=== PATIENT | male | born 1980 | race Asian ===

== ENCOUNTER 2017-06-30 19:16 | Emergency (ER) | payer SELFPAY | END 2017-06-30 20:23 | disposition home or self-care (01) | LOC: ER 19:16 | DX: S29.012A Strain of muscle and tendon of back wall of thorax, initial encounter (principal); Z87.442 Personal history of urinary calculi; V49.49XA Driver injured in collision with other motor vehicles in traffic accident, initial encounter; Y93.89 Activity, other specified; Y99.8 Other external cause status; Y92.488 Other paved roadways as the place of occurrence of the external cause | CPT/HCPCS: 99283 ==

== ENCOUNTER 2019-05-04 05:28 | Emergency (ER) | payer SELFPAY ==
[~2019-05-04] VITALS: Ht 167.6 cm; Wt 68.0 kg
[~2019-05-04 05:28] MED LIST: TRAM50TA PO
[2019-05-04 05:38] VITALS: BP 137/84
[2019-05-04 05:45] LABS: CLARITY,URINE CLEAR; COLOR,URINE ORANGE
[2019-05-04 05:56] LABS: RBC,URINE >40 /HPF (0-2); SQUAMOUS EPITHELIAL CELL,UR OCC /LPF
[2019-05-04 05:57] LABS: BACTERIA,URINE MODERATE /HPF (0-FEW); HYALINE CASTS, URINE OCCASIONAL /HPF; WBC,URINE 20-40 /HPF (0-4)
--- NOTE | 2019-05-04 06:21 | PHYS DOC ---
Past Medical History Past Medical History: Kidney Stone Past Surgical History: Other Additional Past Surgical Histo: Multiple Lithotripsy Smokin Pack Per Day Alcohol Use: Occasionally Drug Use: None Adult General Chief Complaint Chief Complaint: FLANK PAIN HPI HPI Patient is a 34-year-old male with a past medical history of kidney stones is presenting to the emergency department with right flank pain. Patient states that he feels like he passed a left-sided stone yesterday and then developed right-sided flank pain last night. Patient states this feels exactly like his kidney stones in the past. Patient has a history of multiple lithotripsies in the past. Patient denies fever, chills, nausea, vomiting, constipation, diarrhea, chest pain, and shortness of breath. Patient states that he does have a little bit of abdominal pain with this episode. Patient reports seeing blood in the urine this morning. Patient denies any trauma. Review of Systems Review of Systems Constitutional: Denies fever or chills Eyes: Denies redness or eye pain HENT: Denies nasal congestion or sore throat Respiratory: Denies cough or shortness of breath Cardiovascular: Denies chest pain or palpitations GI: Denies nausea, or vomiting, reports abdominal pain : Denies dysuria or hematuria Musculoskeletal: Denies joint pain, reports back pain Integument: Denies rash or skin lesions Neurologic: Denies headache, focal weakness or sensory changes Complete systems were reviewed and found to be within normal limits, except as documented in this note. Current Medications Current Medications Current Medications Medications (Trade) Dose Ordered Sig/Catarino Start Time Stop Time Status Last Admin Dose Admin Ceftriaxone Sodium (Rocephin) 1 gm 1X ONCE 05/04/19 07:00 05/04/19 07:01 DC 05/04/19 07:05 1 GM Ketorolac Tromethamine (Toradol 15mg Vial) 15 mg 1X ONCE 05/04/19 06:30 05/04/19 06:31 DC 05/04/19 06:21 15 MG Metoclopramide HCl (Reglan Vial) 10 mg 1X ONCE 05/04/19 06:30 05/04/19 06:31 DC 05/04/19 06:21 10 MG Sodium Chloride 1,000 ml @ 1,000 mls/hr 1X ONCE 05/04/19 06:30 05/04/19 07:29 DC 05/04/19 06:21 1,000 MLS/HR Allergies Allergies Allergies Coded Allergies Type Severity Reaction Last Updated Verified No Known Drug Allergies 06/30/17 No Physical Exam Physical Exam Constitutional: Well developed, well nourished, no acute distress, non-toxic appearance HENT: Normocephalic, atraumatic, oropharynx moist Eyes: Conjunctiva normal, no discharge Neck: Normal range of motion, no tenderness, supple Cardiovascular: Heart rate normal, regular rhythm Lungs & Thorax: Bilateral breath sounds clear to auscultation, no wheezing Abdomen: Soft, mild tenderness in the epigastric region, nondistended, non- peritoneal Skin: Warm, dry, no erythema, no rash Back: No tenderness, right-sided CVA tenderness Extremities: No tenderness, ROM intact, no edema Neurologic: Alert and oriented X 3, no focal deficits noted Psychologic: Affect normal, judgement normal, mood normal Current Patient Data Vital Signs Vital Signs Date Time Temp Pulse Resp B/P (MAP) Pulse Ox O2 Delivery O2 Flow Rate FiO2 05/04/19 05:38 98.3 92 17 137/84 (101) 98 Room Air 98.3 Lab Values Laboratory Tests Test 05/04/19 05:35 05/04/19 06:00 Urine Collection Type Void Urine Color [place] Urine Clarity Clear Urine pH Urine Specific [place] Urine Protein mg/dL (NEG-TRACE) Urine Glucose (UA) mg/dL (NEG) Urine Ketones (Stick) mg/dL (NEG) Urine Blood (NEG) Urine Nitrite (NEG) Urine Bilirubin (NEG) Urine Urobilinogen Dipstick mg/dL (0.2 mg/dL) Urine Leukocyte Esterase (NEG) Urine RBC >40 /HPF (0-2) Urine WBC 20-40 /HPF (0-4) Urine Squamous Epithelial Cells Occ /LPF Urine Bacteria Moderate /HPF (0-FEW) Urine Hyaline Casts Occasional /HPF White Blood Count 13.6 x10^3/uL (4.0-11.0) H Red Blood Count 5.17 x10^6/uL (4.30-5.70) Hemoglobin 15.9 g/dL (13.0-17.5) Hematocrit 47.0 % (39.0-53.0) Mean Corpuscular Volume 91 fL (79-100) Mean Corpuscular Hemoglobin 31 pg (25-35) Mean Corpuscular Hemoglobin Concent 34 g/dL (31-37) Red Cell Distribution Width 14.1 % (11.5-14.5) Platelet Count 250 x10^3/uL (140-400) Neutrophils (%) (Auto) 81 % (31-73) H Lymphocytes (%) (Auto) 11 % (24-48) L Monocytes (%) (Auto) 6 % (0-9) Eosinophils (%) (Auto) 2 % (0-3) Basophils (%) (Auto) 0 % (0-3) Neutrophils # (Auto) 11.0 x10^3/uL (1.8-7.7) H Lymphocytes # (Auto) 1.5 x10^3/uL (1.0-4.8) Monocytes # (Auto) 0.8 x10^3/uL (0.0-1.1) Eosinophils # (Auto) 0.2 x10^3/uL (0.0-0.7) Basophils # (Auto) 0.1 x10^3/uL (0.0-0.2) Sodium Level 137 mmol/L (136-145) Potassium Level 3.1 mmol/L (3.5-5.1) L Chloride Level 102 mmol/L (98-107) Carbon Dioxide Level 26 mmol/L (21-32) Anion Gap 9 (6-14) Blood Urea Nitrogen 8 mg/dL (8-26) Creatinine 1.1 mg/dL (0.7-1.3) Estimated GFR (Cockcroft-Gault) 74.5 BUN/Creatinine Ratio 7 (6-20) Glucose Level 137 mg/dL (70-99) H Calcium Level 9.2 mg/dL (8.5-10.1) Magnesium Level 1.9 mg/dL (1.8-2.4) Total Bilirubin 0.5 mg/dL (0.2-1.0) Aspartate Amino Transferase (AST) 11 U/L (15-37) L Alanine Aminotransferase (ALT) 32 U/L (16-63) Alkaline Phosphatase 112 U/L (46-116) Total Protein 7.7 g/dL (6.4-8.2) Albumin 3.6 g/dL (3.4-5.0) Albumin/Globulin Ratio 0.9 (1.0-1.7) L Lipase 70 U/L (73-393) L Laboratory Tests 05/04/19 06:00 Laboratory Tests 05/04/19 06:00 EKG EKG [] Radiology/Procedures Radiology/Procedures PROCEDURE: CT ABDOMEN PELVIS WO CONTRAST Study: CT abdomen and pelvis without contrast Indication: Right flank pain. Comparison: None. Technique: Helical CT imaging performed of the abdomen and pelvis without the use of intravenous contrast. Sagittal and coronal reformats were obtained. One or more of the following individualized dose reduction techniques were utilized for this examination: 1. Automated exposure control 2. Adjustment of the mA and/or kV according to patient size 3. Use of iterative reconstruction technique. Findings: Pelviectasis and mild hydroureter on the right as well as periureteral fat stranding however no discrete stone is seen within the ureter. Mild prominence of the left ureter as well as mild periureteral fat stranding along its distal third also without a stone visualized within the ureter. Multiple intrarenal stones are present on the left is measuring up to 1 cm at the upper pole. No stones seen within the urinary bladder. The prostate is somewhat prominent in size. Mild circumferential thickening of the urinary bladder wall. Unremarkable colon and appendix. Nonobstructed small bowel. Collapsed stomach limiting evaluation. Unremarkable major vasculature. No free fluid or air. Unremarkable body wall soft tissues. Unremarkable lower lungs and visualized heart. No abnormality seen to involve the liver, spleen, adrenal glands or pancreas. Synovial herniation pits seen on the left. Smaller pits present on the right. Impression: Several intrarenal stones on the left the largest of which measures up to 1 cm. On the right, pelviectasis and mild hydroureter however no stone is seen within the collecting system. Mild ureteral prominence on the left as well as mild periureteral fat stranding bilaterally. These findings could represent the sequela of a recently passed stone though an ascending urinary tract infection is not excluded. Consider correlation with urinalysis. Electronically signed by: PIERCE VERA MD (05/04/2019 7:04 AM) [facility] Course & Med Decision Making Course & Med Decision Making Pertinent Labs and Imaging studies reviewed. (See chart for details) Patient is a 38-year-old male was past medical history of kidney stones is presenting to the emergency department with right-sided flank pain. Patient was seen and examined at bedside. Physical exam was significant for mild epigastric tenderness and right-sided CVA tenderness. Labs, fluids, CT scan ordered. CT scan showed several intrarenal stones on the left the largest of which measures up to 1 cm, on the right, pelviectasis and mild hydroureter however no stone is seen within the collecting system, mild ureteral prominence on the left as well as mild periureteral fat stranding bilaterally. UA indicative of urinary tract infection, 1 g Rocephin given. Labs significant for a white count, others at baseline. Dragon Disclaimer Dragon Disclaimer This electronic medical record was generated, in whole or in part, using a voice recognition dictation system. Departure Departure Impression: Primary Impression: UTI (urinary tract infection) Additional Impressions: Kidney stone Hypokalemia Disposition: 01 HOME, SELF-CARE Condition: STABLE Referrals: NO PCP (PCP) Patient Instructions: Diet for Kidney Stones, Hypokalemia-Brief, Kidney Stones, [id number], Potassium Content of Foods, Urinary Tract Infection, [id number] Scripts Cephalexin (KEFLEX) 500 Mg Capsule 500 MG PO TID for 7 Days, #21 CAP Prov: MELINDA CASTRO DO 05/04/19 Hydrocodone/Apap 5-325 (NORCO 5-325 TABLET) 1 Each Tablet 0.5-1 TAB PO PRN Q6HRS PRN for PAIN, #10 TAB 0 Refills Prov: MELINDA CASTRO DO 05/04/19 Problem Qualifiers Primary Impression: UTI (urinary tract infection) Urinary tract infection type: site unspecified Hematuria presence: with hematuria Qualified Codes: N39.0 - Urinary tract infection, site not specified; R31.9 - Hematuria, unspecified MELINDA CASTRO DO May 04, 2019 06:21
[2019-05-04] MEDS ORDERED: IV NORMAL SALINE 1000ML BAG 1,000 ML IV ONE (06:30)
[2019-05-04] MEDS ORDERED: METOCLOPRAMIDE HCL 10 MG/2 ML VIAL. IVP ONE (06:30)
[2019-05-04] MEDS ORDERED: KETOROLAC 15 MG/ML VIAL. IVP ONE (06:30)
[2019-05-04 06:32] LABS: BASO # 0.1 x10^3/uL (0.0-0.2); BASO % 0 % (0-3); EOS # 0.2 x10^3/uL (0.0-0.7); EOS % 2 % (0-3); HEMOGLOBIN 15.9 g/dL (13.0-17.5); LYMPH # 1.5 x10^3/uL (1.0-4.8); LYMPH % 11 % (24-48); MEAN CORPUSCULAR HEMOGLOBIN 31 pg (25-35); MEAN CORPUSCULAR HGB CONC 34 g/dL (31-37); MEAN CORPUSCULAR VOLUME 91 fL (79-100); MONO # 0.8 x10^3/uL (0.0-1.1); MONO % 6 % (0-9); NEUT % 81 % (31-73); PLATELET COUNT 250 x10^3/uL (140-400); RED BLOOD COUNT 5.17 x10^6/uL (4.30-5.70); RED CELL DISTRIBUTION WIDTH 14.1 % (11.5-14.5); WHITE BLOOD COUNT 13.6 x10^3/uL (4.0-11.0)
[2019-05-04 06:40] LABS: CALCIUM 9.2 mg/dL (8.5-10.1); CREATININE 1.1 mg/dL (0.7-1.3); GFR 74.5; POTASSIUM 3.1 mmol/L (3.5-5.1)
[2019-05-04 06:46] LABS: ALBUMIN 3.6 g/dL (3.4-5.0); ALBUMIN/GLOBULIN RATIO 0.9 (1.0-1.7); MAGNESIUM 1.9 mg/dL (1.8-2.4); TOTAL BILIRUBIN 0.5 mg/dL (0.2-1.0); TOTAL PROTEIN 7.7 g/dL (6.4-8.2)
[2019-05-04] MEDS ORDERED: cefTRIAXone IV Push 1 GM VIAL. IVP ONE (07:00)
--- NOTE | 2019-05-04 07:07 | RAD ---
Study: CT abdomen and pelvis without contrast Indication: Right flank pain. Comparison: None. Technique: Helical CT imaging performed of the abdomen and pelvis without the use of intravenous contrast. Sagittal and coronal reformats were obtained. One or more of the following individualized dose reduction techniques were utilized for this examination: 1. Automated exposure control 2. Adjustment of the mA and/or kV according to patient size 3. Use of iterative reconstruction technique. Findings: Pelviectasis and mild hydroureter on the right as well as periureteral fat stranding however no discrete stone is seen within the ureter. Mild prominence of the left ureter as well as mild periureteral fat stranding along its distal third also without a stone visualized within the ureter. Multiple intrarenal stones are present on the left is measuring up to 1 cm at the upper pole. No stones seen within the urinary bladder. The prostate is somewhat prominent in size. Mild circumferential thickening of the urinary bladder wall. Unremarkable colon and appendix. Nonobstructed small bowel. Collapsed stomach limiting evaluation. Unremarkable major vasculature. No free fluid or air. Unremarkable body wall soft tissues. Unremarkable lower lungs and visualized heart. No abnormality seen to involve the liver, spleen, adrenal glands or pancreas. Synovial herniation pits seen on the left. Smaller pits present on the right. Impression: Several intrarenal stones on the left the largest of which measures up to 1 cm. On the right, pelviectasis and mild hydroureter however no stone is seen within the collecting system. Mild ureteral prominence on the left as well as mild periureteral fat stranding bilaterally. These findings could represent the sequela of a recently passed stone though an ascending urinary tract infection is not excluded. Consider correlation with urinalysis. Electronically signed by: PIERCE VERA MD (05/04/2019 7:04 AM) [facility]
[2019-05-04] MEDS ORDERED: HYDR-3164 PO (07:37)
[2019-05-04] MEDS ORDERED: CEPH-264 PO (07:37)
[2019-05-04] MEDS ORDERED: POTASSIUM CHLORIDE 20 MEQ TABLET.ER. PO ONE (07:45)
== END 2019-05-04 07:56 | disposition home or self-care (01) ==
LOC: ER 05:28
DX: N39.0 Urinary tract infection, site not specified (principal); N20.0 Calculus of kidney; E87.6 Hypokalemia; F17.200 Nicotine dependence, unspecified, uncomplicated; Z98.890 Other specified postprocedural states; Z87.442 Personal history of urinary calculi; Z79.899 Other long term (current) drug therapy
CPT/HCPCS: 36415; 74176; 80053; 81001; 83690; 83735; 85025; 87086; 96374; 96375; 99285; J0696; J1885; J2765; J7030

== ENCOUNTER 2019-09-20 20:22 | Emergency (ER) | payer SELFPAY ==
[~2019-09-20] VITALS: Ht 167.6 cm; Wt 74.1 kg
[~2019-09-20 20:22] MED LIST changes: +CEPH-264 PO; +HYDR-3164 PO
[2019-09-20 20:53] LABS: BILIRUBIN,URINE NEGATIVE (NEG); CLARITY,URINE CLEAR; COLOR,URINE YELLOW; NITRITE,URINE NEGATIVE (NEG); PROTEIN,URINE 30 mg/dL (NEG-TRACE); UROBILINOGEN,URINE 0.2 mg/dL (0.2 mg/dL)
[2019-09-20 21:04] LABS: BACTERIA,URINE MANY /HPF (0-FEW); RBC,URINE TNTC /HPF (0-2); SQUAMOUS EPITHELIAL CELL,UR FEW /LPF; WBC,URINE TNTC /HPF (0-4)
[2019-09-20 21:07] LABS: BASO # 0.1 x10^3/uL (0.0-0.2); BASO % 1 % (0-3); EOS # 0.3 x10^3/uL (0.0-0.7); EOS % 3 % (0-3); HEMATOCRIT 46.8 % (39.0-53.0); HEMOGLOBIN 15.9 g/dL (13.0-17.5); LYMPH # 1.4 x10^3/uL (1.0-4.8); LYMPH % 14 % (24-48); MEAN CORPUSCULAR HEMOGLOBIN 31 pg (25-35); MEAN CORPUSCULAR HGB CONC 34 g/dL (31-37); MEAN CORPUSCULAR VOLUME 92 fL (79-100); MONO # 0.7 x10^3/uL (0.0-1.1); MONO % 7 % (0-9); NEUT # 7.5 x10^3/uL (1.8-7.7); NEUT % 76 % (31-73); PLATELET COUNT 257 x10^3/uL (140-400); RED BLOOD COUNT 5.12 x10^6/uL (4.30-5.70); RED CELL DISTRIBUTION WIDTH 14.4 % (11.5-14.5); WHITE BLOOD COUNT 9.9 x10^3/uL (4.0-11.0)
[2019-09-20 21:14] LABS: CALCIUM 9.3 mg/dL (8.5-10.1); CREATININE 0.9 mg/dL (0.7-1.3); GFR 93.5; POTASSIUM 3.6 mmol/L (3.5-5.1)
[2019-09-20] MEDS ORDERED: METOCLOPRAMIDE HCL 10 MG/2 ML VIAL. IVP ONE (21:15)
[2019-09-20] MEDS ORDERED: IV NORMAL SALINE 1000ML BAG 1,000 ML IV ONE (21:15)
[2019-09-20] MEDS ORDERED: KETOROLAC 15 MG/ML VIAL. IVP ONE (21:15)
[2019-09-20 21:20] LABS: ALBUMIN 3.8 g/dL (3.4-5.0); MAGNESIUM 1.9 mg/dL (1.8-2.4); TOTAL BILIRUBIN 0.4 mg/dL (0.2-1.0); TOTAL PROTEIN 7.6 g/dL (6.4-8.2)
[2019-09-20] MEDS ORDERED: cefTRIAXone IV Push 1 GM VIAL. IVP ONE (21:30)
--- NOTE | 2019-09-20 21:36 | RAD ---
Exam: CT of abdomen and pelvis without contrast INDICATION: Flank pain, evaluate for kidney stone TECHNIQUE: Sequential axial images through the abdomen and pelvis obtained without IV contrast. Sagittal and coronal reformatted images were reconstructed from the axial data and reviewed. Comparisons: 05/04/2019 FINDINGS: Heart size is normal. No pericardial effusion. Visualized lung bases are clear. No pleural effusion. Evaluation of the solid organs is limited secondary to noncontrast technique. Liver, spleen, pancreas, gallbladder and adrenals are unremarkable. There is a 1 cm calculus at the left ureteropelvic junction. Several nonobstructing left renal calculi are noted. No other ureteral calculi are identified. Bladder is decompressed not well evaluated. Prostate is not enlarged. Large and small bowel are unremarkable. Appendix is normal. No free intra-abdominal air or fluid. Abdominal aorta has a normal course and caliber. No enlarged intra-abdominal lymph nodes are identified. No suspicious osseous lesions or acute fractures. IMPRESSION: 1. A 1 cm calculus at the left ureteral pelvic junction with mild left-sided hydronephrosis. 2. Several nonobstructing left renal calculi. Exposure: One or more of the following in the visualized dose reduction techniques were utilized for this examination: 1. Automated exposure control 2. Adjustment of the MA and/or KV according to patient size 3. Use of iterative of reconstructive technique Electronically signed by: Donovan Savage MD (09/20/2019 9:33 PM) [id number]
[2019-09-20 22:00] VITALS: BP 122/66
[2019-09-20] MEDS ORDERED: HYDR-3164 PO (22:13)
--- NOTE | 2019-09-20 22:13 | PHYS DOC ---
Past Medical History Past Medical History: Kidney Stone Past Surgical History: Other Additional Past Surgical Histo: Multiple Lithotripsy Smoking Status: Current Every Day Smoker Alcohol Use: None Drug Use: None General Adult EDM: Chief Complaint: FLANK PAIN HPI: HPI: Patient is a 39 year old male presents with history of left flank pain x 2 days. Reports history of kidney stones. Reports current symptoms similar to prior episode. Patient reports some associated subjective fever/chills. Denies trauma. Review of Systems: Review of Systems: Constitutional: Reports subjective fever and chills Eyes: Denies change in visual acuity, redness, or eye pain HENT: Denies nasal congestion or sore throat Respiratory: Denies cough or shortness of breath Cardiovascular: Denies chest pain or palpitations GI: Reports abdominal pain; denies nausea, vomiting, or diarrhea : Denies dysuria or hematuria Musculoskeletal: Reports left flank pain; denies joint pain Integument: Denies rash or skin lesions Neurologic: Denies headache, focal weakness or sensory changes Complete systems were reviewed and found to be within normal limits, except as documented in this note. Current Medications: Current Medications Medications (Trade) Dose Ordered Sig/Catarino Start Time Stop Time Status Last Admin Dose Admin Ceftriaxone Sodium (Rocephin) 1 gm 1X ONCE 09/20/19 21:30 09/20/19 21:31 DC Ketorolac Tromethamine (Toradol 15mg Vial) 15 mg 1X ONCE 09/20/19 21:15 09/20/19 21:16 DC 09/20/19 21:18 15 MG Metoclopramide HCl (Reglan Vial) 10 mg 1X ONCE 09/20/19 21:15 09/20/19 21:16 DC 09/20/19 21:18 10 MG Sodium Chloride 1,000 ml @ 1,000 mls/hr 1X ONCE 09/20/19 21:15 09/20/19 22:14 09/20/19 21:26 1,000 MLS/HR Tamsulosin HCl (Flomax) 0.4 mg 1X ONCE 09/20/19 22:15 09/20/19 22:16 UNV Allergies: Allergies: Allergies Coded Allergies Type Severity Reaction Last Updated Verified No Known Drug Allergies 06/30/17 No Physical Exam: PE: Constitutional: Well developed, well nourished, no acute distress, non-toxic appearance HENT: Normocephalic, atraumatic, oropharynx moist Eyes: Conjunctiva normal, no discharge Neck: Normal range of motion, no tenderness, supple Cardiovascular: Heart rate normal and regular rhythm Lungs & Thorax: Bilateral breath sounds clear to auscultation, no respiratory distress Abdomen: Soft, left sided tenderness, no guarding/rebound tenderness Skin: Warm, dry, no erythema, no rash Back: No tenderness, left CVA tenderness Extremities: No tenderness, ROM intact, no edema Neurologic: Alert and oriented X 3, no focal deficits noted Psychologic: Affect normal, judgement normal Current Patient Data: Labs: Laboratory Tests Test 09/20/19 20:27 09/20/19 20:48 Urine Collection Type Unknown Urine Color Yellow Urine Clarity Clear Urine pH 6.0 (<5.0-8.0) Urine Specific [place] 1.010 (1.000-1.030) Urine Protein 30 mg/dL (NEG-TRACE) Urine Glucose (UA) Negative mg/dL (NEG) Urine Ketones (Stick) Negative mg/dL (NEG) Urine Blood Large (NEG) Urine Nitrite Negative (NEG) Urine Bilirubin Negative (NEG) Urine Urobilinogen Dipstick 0.2 mg/dL (0.2 mg/dL) Urine Leukocyte Esterase Large (NEG) Urine RBC Tntc /HPF (0-2) Urine WBC Tntc /HPF (0-4) Urine Squamous Epithelial Cells Few /LPF Urine Bacteria Many /HPF (0-FEW) White Blood Count 9.9 x10^3/uL (4.0-11.0) Red Blood Count 5.12 x10^6/uL (4.30-5.70) Hemoglobin 15.9 g/dL (13.0-17.5) Hematocrit 46.8 % (39.0-53.0) Mean Corpuscular Volume 92 fL (79-100) Mean Corpuscular Hemoglobin 31 pg (25-35) Mean Corpuscular Hemoglobin Concent 34 g/dL (31-37) Red Cell Distribution Width 14.4 % (11.5-14.5) Platelet Count 257 x10^3/uL (140-400) Neutrophils (%) (Auto) 76 % (31-73) H Lymphocytes (%) (Auto) 14 % (24-48) L Monocytes (%) (Auto) 7 % (0-9) Eosinophils (%) (Auto) 3 % (0-3) Basophils (%) (Auto) 1 % (0-3) Neutrophils # (Auto) 7.5 x10^3/uL (1.8-7.7) Lymphocytes # (Auto) 1.4 x10^3/uL (1.0-4.8) Monocytes # (Auto) 0.7 x10^3/uL (0.0-1.1) Eosinophils # (Auto) 0.3 x10^3/uL (0.0-0.7) Basophils # (Auto) 0.1 x10^3/uL (0.0-0.2) Sodium Level 139 mmol/L (136-145) Potassium Level 3.6 mmol/L (3.5-5.1) Chloride Level 104 mmol/L (98-107) Carbon Dioxide Level 26 mmol/L (21-32) Anion Gap 9 (6-14) Blood Urea Nitrogen 10 mg/dL (8-26) Creatinine 0.9 mg/dL (0.7-1.3) Estimated GFR (Cockcroft-Gault) 93.5 BUN/Creatinine Ratio 11 (6-20) Glucose Level 64 mg/dL (70-99) L Calcium Level 9.3 mg/dL (8.5-10.1) Magnesium Level 1.9 mg/dL (1.8-2.4) Total Bilirubin 0.4 mg/dL (0.2-1.0) Aspartate Amino Transferase (AST) 17 U/L (15-37) Alanine Aminotransferase (ALT) 37 U/L (16-63) Alkaline Phosphatase 96 U/L (46-116) Total Protein 7.6 g/dL (6.4-8.2) Albumin 3.8 g/dL (3.4-5.0) Albumin/Globulin Ratio 1.0 (1.0-1.7) Lipase 95 U/L (73-393) Laboratory Tests 09/20/19 20:48 Laboratory Tests 09/20/19 20:48 Vital Signs: Vital Signs Date Time Temp Pulse Resp B/P (MAP) Pulse Ox O2 Delivery O2 Flow Rate FiO2 09/20/19 20:57 98.3 87 15 132/88 (103) 99 Room Air 98.3 EKG: EKG: [] Radiology/Procedures: Radiology/Procedures: PROCEDURE: CT ABDOMEN PELVIS WO CONTRAST Exam: CT of abdomen and pelvis without contrast INDICATION: Flank pain, evaluate for kidney stone TECHNIQUE: Sequential axial images through the abdomen and pelvis obtained without IV contrast. Sagittal and coronal reformatted images were reconstructed from the axial data and reviewed. Comparisons: 05/04/2019 FINDINGS: Heart size is normal. No pericardial effusion. Visualized lung bases are clear. No pleural effusion. Evaluation of the solid organs is limited secondary to noncontrast technique. Liver, spleen, pancreas, gallbladder and adrenals are unremarkable. There is a 1 cm calculus at the left ureteropelvic junction. Several nonobstructing left renal calculi are noted. No other ureteral calculi are identified. Bladder is decompressed not well evaluated. Prostate is not enlarged. Large and small bowel are unremarkable. Appendix is normal. No free intra-abdominal air or fluid. Abdominal aorta has a normal course and caliber. No enlarged intra-abdominal lymph nodes are identified. No suspicious osseous lesions or acute fractures. IMPRESSION: 1. A 1 cm calculus at the left ureteral pelvic junction with mild left-sided hydronephrosis. 2. Several nonobstructing left renal calculi. Exposure: One or more of the following in the visualized dose reduction techniques were utilized for this examination: 1. Automated exposure control 2. Adjustment of the MA and/or KV according to patient size 3. Use of iterative of reconstructive technique Electronically signed by: Donovan Savage MD (09/20/2019 9:33 PM) [id number] Course & Med Decision Making: Course & Med Decision Making Pertinent Labs and Imaging studies reviewed. (See chart for details) Patient presents with HPI and PE concerning for obstructing kidney stone. Labs obtained and posted to chart. UA with microscopic hematuria and concern for possible infection. Rocephin given. WBC WNL. CT Abd/pelvis with findings consistent for UPJ 1mm obstructing stone. Pain/nausea addressed. IVF hydration given. Flomax also provided. Patient stable for discharge home with outpatient follow-up with PCP/Urologist. Discussed findings and plan with patient, who acknowledges understanding and agreement. Romel Disclaimer: Romel Disclaimer: This electronic medical record was generated, in whole or in part, using a voice recognition dictation system. Departure Departure Impression: Primary Impression: Kidney stone Additional Impression: UTI (urinary tract infection) Qualified Codes: N30.01 - Acute cystitis with hematuria Disposition: HOME, SELF-CARE Condition: STABLE Referrals: NO PCP (PCP) Patient Instructions: Diet for Kidney Stones, Kidney Stones, [id number], Ur inary Tract Infection, [id number] Scripts Cephalexin (KEFLEX) 500 Mg Capsule 500 MG PO TID for 7 Days, #21 CAP Prov: MELINDA CASTRO DO 09/20/19 Tamsulosin Hcl (FLOMAX) 0.4 Mg Cap.er.24h 1 CAP PO DAILY, #10 CAP Prov: MELINDA CASTRO DO 09/20/19 Ondansetron (ONDANSETRON ODT) 4 Mg Tab.rapdis 1 TAB PO PRN Q6-8HRS PRN for NAUSEA, #16 TAB Prov: MELINDA CASTRO DO 09/20/19 Hydrocodone/Apap 5-325 (NORCO 5-325 TABLET) 1 Each Tablet 0.5-1 TAB PO PRN Q6HRS PRN for PAIN, #10 TAB 0 Refills Prov: MELINDA CASTRO DO 09/20/19 MELINDA CASTRO DO September 20, 2019 22:13
[2019-09-20] MEDS ORDERED: HYDROcodone/APAP 5/325MG 1 TAB TABLET PO ONE (22:15)
[2019-09-20] MEDS ORDERED: TAMSULOSIN 0.4 MG CAP.ER.24H. PO ONE (22:15)
[2019-09-20] MEDS ORDERED: CEPH-264 PO (22:17)
[2019-09-20] MEDS ORDERED: ONDA4TAB12 PO (22:17)
[2019-09-20] MEDS ORDERED: TAMS0.4C97 PO (22:17)
== END 2019-09-20 22:36 | disposition home or self-care (01) ==
LOC: ER 20:22
DX: N30.01 Acute cystitis with hematuria (principal); N20.0 Calculus of kidney; F17.200 Nicotine dependence, unspecified, uncomplicated; Z98.890 Other specified postprocedural states
CPT/HCPCS: 36415; 74176; 80053; 81001; 83690; 83735; 85025; 87086; 96374; 96375; 99284; J0696; J1885; J2765; J7030

== ENCOUNTER 2019-12-18 01:58 | Emergency (ER) | payer SELFPAY ==
[~2019-12-18] VITALS: Ht 167.6 cm; Wt 70.5 kg
[~2019-12-18 01:58] MED LIST changes: +ONDA4TAB12 PO; +TAMS0.4C97 PO
--- NOTE | 2019-12-18 03:15 | PHYS DOC ---
Past Medical History Past Medical History: Kidney Stone Past Surgical History: Other Additional Past Surgical Histo: Multiple Lithotripsy Smoking Status: Current Every Day Smoker Alcohol Use: None Drug Use: None General Adult EDM: Chief Complaint: LOWER EXT PAIN HPI: HPI: Patient is a 39 year old male who presents with pain in the left foot. Patient reports that he struck his heel by stomping his foot and anger. This happened on Friday and he is here this morning stating that he is unable to walk on it because of the pain. Patient denies any injury above the ankle. Patient otherwise denies any other complaints including chest pain, fever chills, shortness of breath, change in smell or taste. He describes the pain is constant, worse with weightbearing, nonradiating and described as sharp Review of Systems: Review of Systems: Constitutional: Denies fever or chills. [] Eyes: Denies change in visual acuity. [] HENT: Denies nasal congestion or sore throat. [] Respiratory: Denies cough or shortness of breath. [] Cardiovascular: Denies chest pain or edema. [] GI: Denies abdominal pain, nausea, vomiting, bloody stools or diarrhea. [] : Denies dysuria. [] Musculoskeletal: See HPI [] Integument: Denies rash. [] Neurologic: Denies headache, focal weakness or sensory changes. [] Endocrine: Denies polyuria or polydipsia. [] Lymphatic: Denies swollen glands. [] Psychiatric: Denies depression or anxiety. [] Heart Score: Risk Factors: Risk Factors: DM, Current or recent (<one month) smoker, HTN, HLP, family history of CAD, obesity. Risk Scores: Score 0 - 3: 2.5% MACE over next 6 weeks - Discharge Home Score 4 - 6: 20.3% MACE over next 6 weeks - Admit for Clinical Observation Score 7 - 10: 72.7% MACE over next 6 weeks - Early Invasive Strategies Allergies: Allergies: Allergies Coded Allergies Type Severity Reaction Last Updated Verified No Known Drug Allergies 06/30/17 No Physical Exam: PE: Constitutional: Well developed, well nourished, no acute distress, non-toxic appearance. [] HENT: Normocephalic, atraumatic, bilateral external ears normal, oropharynx moist, no oral exudates, nose normal. [] Eyes: PERRLA, EOMI, conjunctiva normal, no discharge. [] Neck: Normal range of motion, no tenderness, supple, no stridor. [] Cardiovascular:Heart rate regular rhythm, no murmur [] Lungs & Thorax: Bilateral breath sounds clear to auscultation [] Abdomen: Bowel sounds normal, soft, no tenderness, no masses, no pulsatile masses. [] Skin: Warm, dry, no erythema, no rash. [] Back: No tenderness, no CVA tenderness. [] Extremities: No tenderness, no cyanosis, no clubbing, ROM intact, no edema. No deformity is identified. Tenderness near the left heel reproducing his pain, full range of motion of the knee and ankle with no deformity or pain to palpation. [] Current Patient Data: Vital Signs: Vital Signs Date Time Temp Pulse Resp B/P (MAP) Pulse Ox O2 Delivery O2 Flow Rate FiO2 12/18/19 02:49 97.9 75 20 113/64 (80) 95 97.9 EKG: EKG: [] Radiology/Procedures: Radiology/Procedures: [] Course & Med Decision Making: Course & Med Decision Making Pertinent Labs and Imaging studies reviewed. (See chart for details) [id number]-patient was seen and reevaluated. I did evaluate his x-ray. No intra- articular extension is identified and is also nondisplaced. This therefore seems to be a stable fracture does not require urgent surgical consultation and conservative management with nonweightbearing and follow-up with Ortho. I discussed this with the patient. I discussed reasons to return, treatment plan and need for follow-up [] Romel Disclaimer: Romel Disclaimer: This electronic medical record was generated, in whole or in part, using a voice recognition dictation system. Departure Departure Impression: Primary Impression: Nondisplaced fracture of right calcaneus Qualified Codes: S92.044A - Nondisplaced other fracture of tuberosity of right calcaneus, initial encounter for closed fracture Additional Impression: Foot pain, right Disposition: 01 HOME, SELF-CARE Condition: GOOD Referrals: NO PCP (PCP) KIRTI SWANN MD Patient Instructions: Calcaneal Fracture Additional Instructions: See list of primary care providers to choose from for follow-up Scripts Hydrocodone/Apap 5-325 (NORCO 5-325 TABLET) 1 Each Tablet 1-2 EACH PO PRN Q6HRS PRN for PAIN, #20 as needed for pain Prov: ARIADNE MAE MD 12/18/19 Justicifation of Admission Dx: Justifications for Admission: Justification of Admission Dx: N/A ARIADNE MAE MD Dec 18, 2019 03:14
[2019-12-18] MEDS ORDERED: KETOROLAC 30 MG/ML VIAL. IVP ONE (03:30)
--- NOTE | 2019-12-18 03:42 | RAD ---
Right foot x-rays 3 views HISTORY: Right foot pain after trauma, heel pain. FINDINGS: Acute traumatic fracture of the inferior calcaneus tuberosity as well as to the plantar fascial cortical attachment site with mild step-off of 2 mm, no involvement of the Achilles tendon insertion at the upper tuberosity evident and no intra-articular extension at the talocalcaneal joint or calcaneocuboid joint evident. The remainder of the foot is intact. No dislocation. IMPRESSION: Acute traumatic fracture of the calcaneus as described above. Electronically signed by: Tony Borjas MD (12/18/2019 3:39 AM) [facility]
[2019-12-18] MEDS ORDERED: HYDR-3164 PO (03:59)
[2019-12-18 04:25] VITALS: BP 113/69
[2019-12-18] MEDS ORDERED: KETOROLAC 60 MG/2 ML VIAL. IM ONE (04:30)
== END 2019-12-18 04:32 | disposition home or self-care (01) ==
LOC: ER 01:58
DX: S92.044A Nondisplaced other fracture of tuberosity of right calcaneus, initial encounter for closed fracture (principal); F17.200 Nicotine dependence, unspecified, uncomplicated; Z87.442 Personal history of urinary calculi; Z98.890 Other specified postprocedural states; W20.8XXA Other cause of strike by thrown, projected or falling object, initial encounter; Y93.89 Activity, other specified; Y92.89 Other specified places as the place of occurrence of the external cause; Y99.8 Other external cause status
CPT/HCPCS: 73630; 96372; 99283; J1885